=== PATIENT | male | born 1960 | race Hispanic/Latino ===

== ENCOUNTER 2020-11-28 19:42 | Inpatient (IN) | payer OTHER ==
[~2020-11-28] VITALS: Ht 167.6 cm; Wt 107.6 kg
[2020-11-28 19:44] VITALS: BP 172/94
[2020-11-28] MEDS ORDERED: ASPIRIN 325MG TAB PO ONE (20:00)
[2020-11-28] MEDS ORDERED: NITROGLYCERIN 0.4 MG SL TAB SL PRN (20:00)
[2020-11-28] MEDS ORDERED: NITROGLYCERIN 1GM OINT 1 INCH/1GM TD ONE (20:00)
[2020-11-28 20:56] VITALS: BP 149/125
[2020-11-28] MEDS ORDERED: ENOXAPARIN SODIUM 100 MG/1 ML SQ SCH (21:00)
[2020-11-28 21:12] VITALS: BP 158/92
[2020-11-28 21:29] LABS: BASOPHILS % (AUTO) 0.6 % (0.0-5.0); EOSINOPHILS % (AUTO) 2.9 % (0.0-8.0); HEMATOCRIT 42.7 % (42-54); LYMPHOCYTES % (AUTO) 28.5 % (21.0-51.0); MEAN CORPUSCULAR HEMOGLOBIN 28.7 pg (27.0-33.0); MEAN CORPUSCULAR HGB CONC 34.2 g/dL (32.0-36.0); MEAN CORPUSCULAR VOLUME 83.9 fL (79-99); MONOCYTES % (AUTO) 7.6 % (3.0-13.0); NEUTROPHILS % (AUTO) 60.2 % (40.0-77.0); PLATELET COUNT (AUTO) 262 K/uL (130-400); RED BLOOD CELL COUNT(AUTO) 5.09 MIL/uL (4.50-6.20); WHITE BLOOD COUNT (AUTO) 8.4 K/uL (4.8-10.8)
[2020-11-28 21:39] LABS: PROTHROMBIN TIME 10.9 SEC (9.6-11.6)
[2020-11-28 21:41] LABS: PARTIAL THROMBOPLASTIN TIME 25.4 SEC (26.3-35.5)
[2020-11-28 21:43] LABS: CREATININE 1.2 mg/dL (0.5-1.5); POTASSIUM 3.9 mmol/L (3.5-5.1)
[2020-11-28 21:47] LABS: ALBUMIN 3.8 g/dL (3.5-5.0); BILIRUBIN,TOTAL 0.2 mg/dL (0.2-1.0); TOTAL PROTEIN, SERUM 7.7 g/dL (6.0-8.3)
[2020-11-28 21:54] LABS: B-TYPE NATRIURETIC PEPTIDE 14 pg/mL (0-100)
[2020-11-28 22:54] VITALS: BP 123/71
[2020-11-28] MEDS ORDERED: MORPHINE 4 MG SYG IV PRN (23:00)
[2020-11-28] MEDS ORDERED: ONDANSETRON 4MG INJ IV PRN (23:00)
[2020-11-28] MEDS: NITROGLYCERIN 1GM OINT 1 INCH/1GM TD SCH (23:30)
[2020-11-28 23:32] LABS: CHOLESTEROL 224 mg/dL (<200); HDL CHOLESTEROL 33 mg/dL (29-71); LDL DIRECT 103 mg/dL (0-99); TRIGLYCERIDES 502 mg/dL (30-200)
[2020-11-29] VITALS (8 sets, daily range): BP systolic 98–135; BP diastolic 17–81
[2020-11-29 04:03] LABS: CREATININE 0.9 mg/dL (0.5-1.5); MAGNESIUM 1.9 mg/dL (1.80-2.40); PHOSPHORUS 3.7 mg/dL (2.5-4.9); POTASSIUM 3.9 mmol/L (3.5-5.1); THYROID STIMULATING HORMONE 3.93 uIU/mL (0.36-3.74)
[2020-11-29 04:09] LABS: TROPONIN I 5.85 ng/mL (0.00-0.06)
[2020-11-29] MEDS ORDERED: HEPARIN 25,000 UNITS/250ML D5W 250 ML IV ONE (04:25)
[2020-11-29] MEDS ORDERED: HEPARIN 25,000 UNITS/250ML D5W 250 ML IV SCH ×2 (04:30→08:00)
[2020-11-29] MEDS ORDERED: HEPARIN 5,000 UNIT VIAL SQ PRN (04:30)
[2020-11-29 04:31] LABS: BASOPHILS % (AUTO) 0.7 % (0.0-5.0); HEMATOCRIT 39.9 % (42-54); LYMPHOCYTES % (AUTO) 31.1 % (21.0-51.0); MEAN CORPUSCULAR HEMOGLOBIN 29.2 pg (27.0-33.0); MEAN CORPUSCULAR HGB CONC 35.1 g/dL (32.0-36.0); MEAN CORPUSCULAR VOLUME 83.1 fL (79-99); MONOCYTES % (AUTO) 6.3 % (3.0-13.0); NEUTROPHILS % (AUTO) 58.5 % (40.0-77.0); PLATELET COUNT (AUTO) 243 K/uL (130-400); RED CELL DISTRIBUTION WIDTH 12.1 % (11.0-15.5); WHITE BLOOD COUNT (AUTO) 8.5 K/uL (4.8-10.8)
[2020-11-29 04:41] LABS: HEMOGLOBIN A1C 7.4 % (4.0-6.0)
[2020-11-29] MEDS ORDERED: HEPARIN 5,000 UNIT VIAL ONE (05:10)
[2020-11-29] MEDS ORDERED: CLOPIDOGREL 300MG TAB ONE (05:36)
[2020-11-29] MEDS ORDERED: NITROGLYCERIN 1GM OINT 1 INCH/1GM TD ONE (06:18)
[2020-11-29] MEDS: LEVOTHYROXINE 100 MCG TABLET PO SCH (06:30)
[2020-11-29] MEDS ORDERED: 0.9% NACL 500ML IV.SOLN 500 ML IV SCH (06:30)
[2020-11-29] MEDS ORDERED: HEPARIN 10,000 UNIT/10ML (1,000 UNIT/ML) VIAL ONE (07:03)
[2020-11-29] MEDS ORDERED: IOHEXOL-350 50ML VIAL IV ONE (07:03)
[2020-11-29] MEDS ORDERED: IOHEXOL 350 MG/ML 100ML INFUS..BTL IV ONE (07:03)
[2020-11-29] MEDS ORDERED: FENTANYL CITRATE PF 50 MCG/1 ML 2ML VIAL ONE (07:03)
[2020-11-29] MEDS ORDERED: MIDAZOLAM HCL 1 MG/ML 2ML VIAL ONE (07:03)
[2020-11-29] MEDS ORDERED: LIDOCAINE HCL 400MG/20ML VIAL ONE (07:04)
[2020-11-29] MEDS ORDERED: CLOPIDOGREL 300MG TAB PO SCH (07:23)
[2020-11-29] MEDS: GEMFIBROZIL 600 MG TABLET PO SCH ×2 (07:30→17:48)
[2020-11-29] MEDS: INSULIN HUMULIN R 100 UNIT/ML 3ML SQ SCH ×4 (07:30→21:05)
[2020-11-29] MEDS: NITROGLYCERIN 1GM OINT 1 INCH/1GM TD SCH ×2 (07:30→17:49)
[2020-11-29] MEDS ORDERED: LEVO100T4 PO (08:13)
[2020-11-29] MEDS: METOPROLOL TARTRATE 25 MG TAB PO SCH ×2 (09:00→21:03)
[2020-11-29] MEDS ORDERED: LISINOPRIL 10 MG TABLET PO SCH (09:00)
[2020-11-29] MEDS ORDERED: ENOXAPARIN SODIUM 40 MG/0.4 ML SYRINGE SQ SCH (09:00)
[2020-11-29] MEDS ORDERED: CARVEDILOL 3.125 MG TABLET PO SCH (09:00)
[2020-11-29 09:42] LABS: TROPONIN I 5.92 ng/mL (0.00-0.06)
[2020-11-29] MEDS: ASPIRIN 81MG CHEW TAB PO SCH (10:04)
[2020-11-29] MEDS: FAMOTIDINE 20MG TAB PO SCH (10:04)
[2020-11-29 17:26] LABS: ABG BASE EXCESS -0.4 mmol/L (-2.0-3.0); ABG HCO3 22.3 mmol/L (21.0-28.0); ABG OXYGEN SATURATION 97.3 % (95.0-99.0); ABG PCO2 32 mmHg (35-48)
[2020-11-29] MEDS ORDERED: MORPHINE 2 MG SYG IV PRN (17:30)
[2020-11-29] MEDS: ACETAMINOPHEN 325 MG TAB PO PRN (17:48)
[2020-11-29] MEDS ORDERED: HYDROCODONE/ACETAMINOPHEN 5/325 MG TAB PO PRN (19:00)
[2020-11-29] MEDS ORDERED: ATORVASTATIN 40 MG TABLET PO SCH ×2 (21:00)
[2020-11-29] MEDS: ATORVASTATIN 40 MG TABLET PO SCH (21:03)
[2020-11-30] VITALS (36 sets, daily range): BP systolic 75–154; BP diastolic 41–77
[2020-11-30] MEDS: NITROGLYCERIN 1GM OINT 1 INCH/1GM TD SCH (00:39)
[2020-11-30 03:34] LABS: BASOPHILS % (AUTO) 0.5 % (0.0-5.0); EOSINOPHILS % (AUTO) 2.3 % (0.0-8.0); HEMATOCRIT 39.1 % (42-54); LYMPHOCYTES % (AUTO) 39.1 % (21.0-51.0); MEAN CORPUSCULAR HEMOGLOBIN 29.1 pg (27.0-33.0); MEAN CORPUSCULAR HGB CONC 34.5 g/dL (32.0-36.0); MEAN CORPUSCULAR VOLUME 84.3 fL (79-99); MONOCYTES % (AUTO) 7.4 % (3.0-13.0); NEUTROPHILS % (AUTO) 50.5 % (40.0-77.0); PLATELET COUNT (AUTO) 261 K/uL (130-400); RED BLOOD CELL COUNT(AUTO) 4.64 MIL/uL (4.50-6.20); RED CELL DISTRIBUTION WIDTH 12.3 % (11.0-15.5); WHITE BLOOD COUNT (AUTO) 8.2 K/uL (4.8-10.8)
[2020-11-30 03:50] LABS: INR 0.98 (0.85-1.15); PROTHROMBIN TIME 10.7 SEC (9.6-11.6)
[2020-11-30 03:51] LABS: PARTIAL THROMBOPLASTIN TIME 31.6 SEC (26.3-35.5)
[2020-11-30 03:54] LABS: B-TYPE NATRIURETIC PEPTIDE 12 pg/mL (0-100); POTASSIUM 3.9 mmol/L (3.5-5.1)
[2020-11-30 03:55] LABS: ALBUMIN 3.6 g/dL (3.5-5.0); BILIRUBIN,TOTAL 0.5 mg/dL (0.2-1.0); CREATININE 0.9 mg/dL (0.5-1.5); MAGNESIUM 1.8 mg/dL (1.80-2.40); TOTAL PROTEIN, SERUM 7.3 g/dL (6.0-8.3)
[2020-11-30] MEDS ORDERED: MAGNESIUM 2GM PREMIX 50ML 50 ML IV ONE (06:25)
[2020-11-30] MEDS: LEVOTHYROXINE 100 MCG TABLET PO SCH (06:30)
[2020-11-30] MEDS ORDERED: MAGNESIUM 2GM PREMIX 50ML 50 ML IV PRN ×2 (06:30→09:00)
[2020-11-30] MEDS: INSULIN HUMULIN R 100 UNIT/ML 3ML SQ SCH (06:33)
[2020-11-30] MEDS ORDERED: CEFAZOLIN SODIUM 1 GM VIAL ONE ×2 (06:37→08:39)
[2020-11-30] MEDS ORDERED: PAPAVERINE HCL 30 MG/ML 2ML VIAL ONE (06:37)
[2020-11-30] MEDS ORDERED: NITROGLYCERIN 50MG/D5W 250ML 1 BOT ONE (06:59)
[2020-11-30] MEDS ORDERED: EPINEPHRINE PF 1MG AMP 10 MG in 0.9% NACL 250ML 240 ML IV PRN (06:59)
[2020-11-30] MEDS ORDERED: NOREPINEPHRINE BITARTRATE 8 MG in 0.9% NACL 250ML 250 ML IV PRN (07:00)
[2020-11-30] MEDS ORDERED: AMINOCAPROIC ACID 5,000MG VIAL 15,000 MG in 0.9% NACL 500ML IV.SOLN 420 ML IV PRN (07:00)
[2020-11-30] MEDS ORDERED: CEFAZOLIN SODIUM 1 GM VIAL IVP PRN (07:30)
[2020-11-30] MEDS ORDERED: AMINOCAPROIC ACID 5,000MG VIAL ONE (08:04)
[2020-11-30] MEDS ORDERED: SODIUM BICARB 50MEQ 50ML VIAL 150 ML ONE (08:04)
[2020-11-30] MEDS ORDERED: NOREPINEPHRINE BITARTRATE 1 MG/1 ML ML IV ONE (08:04)
[2020-11-30] MEDS ORDERED: LIDOCAINE PF 100MG/5ML (2%) SYRINGE 5ML ONE (08:04)
[2020-11-30] MEDS ORDERED: HEPARIN 10,000 UNIT/10ML (1,000 UNIT/ML) VIAL ONE ×2 (08:04→08:31)
[2020-11-30] MEDS ORDERED: ESMOLOL HCL 10 MG/ML 10 ML VIAL ONE (08:04)
[2020-11-30] MEDS ORDERED: PROTAMINE SULFATE 10 MG/ML 25ML VIAL IV ONE (08:04)
[2020-11-30] MEDS ORDERED: EPINEPHRINE PF 1MG AMP ONE (08:04)
[2020-11-30] MEDS ORDERED: KETAMINE 50MG/ML SYRINGE 50 MG/ML DISP.SYRIN IV ONE ×2 (08:05→10:56)
[2020-11-30] MEDS ORDERED: PROPOFOL 10 MG/ML 20ML VIAL IV ONE (08:05)
[2020-11-30] MEDS ORDERED: ROCURONIUM 10MG/1ML SYR 10 MG/ML ML ONE (08:05)
[2020-11-30] MEDS ORDERED: MIDAZOLAM HCL 1 MG/ML 2ML VIAL ONE (08:05)
[2020-11-30] MEDS ORDERED: FENTANYL CITRATE PF 50 MCG/1 ML 20ML VIAL IJ ONE (08:05)
[2020-11-30 08:45] LABS: ABG BASE EXCESS -2.5 mmol/L (-2.0-3.0); ABG HCO3 22.1 mmol/L (21.0-28.0); ABG OXYGEN SATURATION 99.1 % (95.0-99.0); ABG PCO2 38 mmHg (35-48)
[2020-11-30] MEDS ORDERED: ACETAMINOPHEN 650 MG SUPPOSITORY RC PRN (09:00)
[2020-11-30] MEDS ORDERED: ONDANSETRON 4MG INJ IV PRN (09:00)
[2020-11-30] MEDS ORDERED: AMINOCAPROIC ACID 5,000MG VIAL 15,000 MG in 0.9% NACL 250ML 250 ML IV SCH (09:00)
[2020-11-30] MEDS ORDERED: 0.9% NACL 500ML IV.SOLN 500 ML IV SCH (09:00)
[2020-11-30] MEDS ORDERED: NOREPINEPHRINE 4MG/NS 250ML 250 ML IV PRN (09:00)
[2020-11-30] MEDS ORDERED: POTASSIUM PHOS 15 mMOL+NS250ML 250 ML IV PRN (09:00)
[2020-11-30] MEDS ORDERED: PROPOFOL 1000 MG/100 ML 100 ML IV PRN (09:00)
[2020-11-30] MEDS ORDERED: 0.9%NACL 10ML VIAL IVP PRN (09:00)
[2020-11-30] MEDS: ASPIRIN 81MG CHEW TAB PO SCH (09:00)
[2020-11-30] MEDS ORDERED: NITROGLYCERIN 50MG/D5W 250ML 250 BOT IV SCH (09:00)
[2020-11-30] MEDS ORDERED: MORPHINE 2 MG SYG IV PRN (09:00)
[2020-11-30] MEDS ORDERED: EPINEPHRINE PF 1MG AMP 10 MG in DEXTROSE 5%-WATER 250 ML IV PRN (09:00)
[2020-11-30] MEDS: FAMOTIDINE 20MG VIAL IV SCH ×2 (09:00→20:59)
[2020-11-30] MEDS: FAMOTIDINE 20MG TAB PO SCH (09:00)
[2020-11-30] MEDS ORDERED: DEXTROSE 50%-WATER 50 ML DISP.SYRIN IV PRN (09:00)
[2020-11-30] MEDS ORDERED: ALBUMIN (HUMAN) 5% 250 ML IV PRN (09:00)
[2020-11-30] MEDS ORDERED: GLUCAGON 1MG KIT 1 MG ML IM PRN (09:00)
[2020-11-30] MEDS ORDERED: 0.9%NACL 1000ML 1,000 ML IV SCH (09:00)
[2020-11-30] MEDS ORDERED: MORPHINE 4 MG SYG IV PRN (09:00)
[2020-11-30 10:45] LABS: ABG BASE EXCESS -6.1 mmol/L (-2.0-3.0); ABG HCO3 19.2 mmol/L (21.0-28.0); ABG OXYGEN SATURATION 98.5 % (95.0-99.0); ABG PCO2 38 mmHg (35-48)
[2020-11-30] MEDS ORDERED: EPHEDRINE SULFATE 50 MG/ML AMPULE ONE (11:05)
[2020-11-30 11:30] LABS: HEMATOCRIT 30.7 % (42-54); MEAN CORPUSCULAR HEMOGLOBIN 29.2 pg (27.0-33.0); MEAN CORPUSCULAR HGB CONC 34.2 g/dL (32.0-36.0); MEAN CORPUSCULAR VOLUME 85.3 fL (79-99); RED BLOOD CELL COUNT(AUTO) 3.6 MIL/uL (4.50-6.20); WHITE BLOOD COUNT (AUTO) 20.7 K/uL (4.8-10.8)
[2020-11-30 11:48] LABS: MAGNESIUM 1.5 mg/dL (1.80-2.40); PHOSPHORUS 4.3 mg/dL (2.5-4.9); POTASSIUM 3.4 mmol/L (3.5-5.1)
[2020-11-30 12:00] LABS: ABG BASE EXCESS -4.2 mmol/L (-2.0-3.0); ABG HCO3 21.9 mmol/L (21.0-28.0); ABG OXYGEN SATURATION 97.3 % (95.0-99.0); ABG PCO2 44 mmHg (35-48)
[2020-11-30] MEDS: SODIUM BICARB 50MEQ 50ML VIAL IV PRN ×3 (12:10→14:45)
[2020-11-30 12:20] LABS: INR 1.1 (0.85-1.15); PROTHROMBIN TIME 11.9 SEC (9.6-11.6)
[2020-11-30 12:21] LABS: PARTIAL THROMBOPLASTIN TIME 25.6 SEC (26.3-35.5)
[2020-11-30] MEDS: POTASSIUM CHLORIDE 20MEQ/100ML 100 ML IV PRN ×3 (12:25→22:39)
[2020-11-30 12:47] LABS: ABG BASE EXCESS -3.1 mmol/L (-2.0-3.0); ABG HCO3 22.3 mmol/L (21.0-28.0); ABG OXYGEN SATURATION 97.9 % (95.0-99.0); ABG PCO2 41 mmHg (35-48)
[2020-11-30] MEDS: TRAMADOL HCL 50 MG TABLET PO PRN ×3 (13:15→22:52)
[2020-11-30] MEDS: CEFAZOLIN SODIUM 1 GM VIAL IV SCH ×2 (13:43→21:08)
[2020-11-30 13:45] LABS: ABG BASE EXCESS -0.4 mmol/L (-2.0-3.0); ABG HCO3 24.7 mmol/L (21.0-28.0); ABG OXYGEN SATURATION 97.1 % (95.0-99.0); ABG PCO2 43 mmHg (35-48)
[2020-11-30] MEDS: CALCIUM GLUC 1GM VIAL 1 GM in 0.9%NACL 50ML 50 ML IV PRN ×3 (14:00→22:37)
[2020-11-30 14:40] LABS: ABG BASE EXCESS -2.1 mmol/L (-2.0-3.0); ABG HCO3 22.9 mmol/L (21.0-28.0); ABG OXYGEN SATURATION 97.2 % (95.0-99.0); ABG PCO2 40 mmHg (35-48)
[2020-11-30] MEDS: ACETAMINOPHEN 325 MG TAB PO PRN (15:23)
[2020-11-30 16:17] LABS: ABG BASE EXCESS -0.2 mmol/L (-2.0-3.0); ABG HCO3 24.6 mmol/L (21.0-28.0); ABG OXYGEN SATURATION 96.3 % (95.0-99.0); ABG PCO2 41 mmHg (35-48)
[2020-11-30] MEDS ORDERED: KETOROLAC 15MG/ML VIAL (15MG/ML) IV PRN (16:30)
[2020-11-30] MEDS: INSULIN REGULAR, HUMAN 3ML 100 UNIT in 0.9%NACL 100ML 99 ML IV SCH ×2 (19:49)
[2020-11-30] MEDS: ATORVASTATIN 40 MG TABLET PO SCH (20:59)
[2020-11-30 22:21] LABS: POTASSIUM 3.9 mmol/L (3.5-5.1)
[2020-11-30] MEDS: MAGNESIUM 2GM PREMIX 50ML 50 ML IV SCH (22:37)
[2020-11-30] MEDS ORDERED: CALCIUM GLUC 1GM VIAL IV ONE (22:47)
[2020-12-01] VITALS (38 sets, daily range): BP systolic 77–182; BP diastolic 44–89
[2020-12-01] MEDS: MAGNESIUM 2GM PREMIX 50ML 50 ML IV SCH (00:36)
[2020-12-01] MEDS ORDERED: NOREPINEPHRINE 8MG/NS 250 ML 250 ML IV ONE (02:34)
[2020-12-01] MEDS ORDERED: KETOROLAC 15MG/ML VIAL (15MG/ML) ONE (02:51)
[2020-12-01] MEDS ORDERED: KETOROLAC 15MG/ML VIAL (15MG/ML) IV ONE (03:00)
[2020-12-01] MEDS: TRAMADOL HCL 50 MG TABLET PO PRN ×4 (03:17→23:05)
[2020-12-01 04:04] LABS: ABG BASE EXCESS 1.1 mmol/L (-2.0-3.0); ABG OXYGEN SATURATION 93.9 % (95.0-99.0); ABG PCO2 38 mmHg (35-48)
[2020-12-01 04:17] LABS: HEMATOCRIT 31.3 % (42-54); MEAN CORPUSCULAR HGB CONC 34.5 g/dL (32.0-36.0); MEAN CORPUSCULAR VOLUME 84.1 fL (79-99); RED BLOOD CELL COUNT(AUTO) 3.72 MIL/uL (4.50-6.20); RED CELL DISTRIBUTION WIDTH 12.3 % (11.0-15.5); WHITE BLOOD COUNT (AUTO) 15.9 K/uL (4.8-10.8)
[2020-12-01 04:28] LABS: INR 1.05 (0.85-1.15); PROTHROMBIN TIME 11.4 SEC (9.6-11.6)
[2020-12-01 04:29] LABS: PARTIAL THROMBOPLASTIN TIME 32.2 SEC (26.3-35.5)
[2020-12-01 04:38] LABS: CREATININE 0.8 mg/dL (0.5-1.5); MAGNESIUM 2.1 mg/dL (1.80-2.40); PHOSPHORUS 4.1 mg/dL (2.5-4.9); POTASSIUM 3.7 mmol/L (3.5-5.1)
[2020-12-01] MEDS: POTASSIUM CHLORIDE 20MEQ/100ML 100 ML IV PRN ×5 (05:04→16:10)
[2020-12-01] MEDS: CEFAZOLIN SODIUM 1 GM VIAL IV SCH (06:10)
[2020-12-01] MEDS: LEVOTHYROXINE 100 MCG TABLET PO SCH (06:10)
[2020-12-01] MEDS: FAMOTIDINE 20MG TAB PO SCH (08:21)
[2020-12-01] MEDS: FUROSEMIDE 20MG VIAL IV SCH ×2 (08:21→20:40)
[2020-12-01] MEDS: ASPIRIN 81MG CHEW TAB PO SCH (08:21)
[2020-12-01 09:51] LABS: CREATININE 0.9 mg/dL (0.5-1.5); MAGNESIUM 1.9 mg/dL (1.80-2.40); POTASSIUM 3.8 mmol/L (3.5-5.1)
[2020-12-01 14:56] LABS: CREATININE 0.9 mg/dL (0.5-1.5); MAGNESIUM 2.1 mg/dL (1.80-2.40); POTASSIUM 3.6 mmol/L (3.5-5.1)
[2020-12-01] MEDS: ATORVASTATIN 40 MG TABLET PO SCH (20:40)
[2020-12-01] MEDS: INSULIN REGULAR, HUMAN 3ML 100 UNIT in 0.9%NACL 100ML 99 ML IV SCH ×2 (23:48)
[2020-12-02] VITALS (65 sets, daily range): BP systolic 92–162; BP diastolic 35–79
[2020-12-02 04:40] LABS: HEMATOCRIT 29.3 % (42-54); MEAN CORPUSCULAR HEMOGLOBIN 28.3 pg (27.0-33.0); MEAN CORPUSCULAR HGB CONC 32.4 g/dL (32.0-36.0); MEAN CORPUSCULAR VOLUME 87.2 fL (79-99); RED BLOOD CELL COUNT(AUTO) 3.36 MIL/uL (4.50-6.20); RED CELL DISTRIBUTION WIDTH 12.5 % (11.0-15.5); WHITE BLOOD COUNT (AUTO) 15.3 K/uL (4.8-10.8)
[2020-12-02 04:49] LABS: CREATININE 0.8 mg/dL (0.5-1.5); POTASSIUM 4.1 mmol/L (3.5-5.1)
[2020-12-02] MEDS: LEVOTHYROXINE 100 MCG TABLET PO SCH (05:35)
[2020-12-02] MEDS: TRAMADOL HCL 50 MG TABLET PO PRN ×3 (05:35→21:18)
[2020-12-02] MEDS: METOPROLOL TARTRATE 25 MG TAB PO SCH ×2 (09:00→20:11)
[2020-12-02] MEDS: ACETAMINOPHEN 325 MG TAB PO PRN (09:20)
[2020-12-02] MEDS: FAMOTIDINE 20MG TAB PO SCH (09:20)
[2020-12-02] MEDS: ASPIRIN 81MG CHEW TAB PO SCH (09:20)
[2020-12-02] MEDS ORDERED: AMIODARONE 900MG VIAL 360 MG in DEXTROSE 5%-WATER 200 ML IV SCH (10:00)
[2020-12-02] MEDS ORDERED: AMIODARONE 900MG VIAL 150 MG in DEXTROSE 5%-WATER 100 ML IV SCH (10:00)
[2020-12-02] MEDS ORDERED: AMIODARONE 900MG VIAL 450 MG in DEXTROSE 5%-WATER 250 ML IV SCH (10:00)
[2020-12-02] MEDS ORDERED: AMIODARONE 900MG VIAL 900 MG in DEXTROSE 5%-WATER 500 ML IV SCH (10:00)
[2020-12-02] MEDS: FUROSEMIDE 20 MG TABLET PO SCH ×2 (10:34→16:57)
[2020-12-02] MEDS: ATORVASTATIN 40 MG TABLET PO SCH (21:17)
[2020-12-03] VITALS (18 sets, daily range): BP systolic 89–115; BP diastolic 53–82
[2020-12-03] MEDS: ACETAMINOPHEN 325 MG TAB PO PRN ×2 (00:04→20:31)
[2020-12-03 03:44] LABS: HEMATOCRIT 27.5 % (42-54); MEAN CORPUSCULAR HEMOGLOBIN 29.1 pg (27.0-33.0); MEAN CORPUSCULAR HGB CONC 34.2 g/dL (32.0-36.0); MEAN CORPUSCULAR VOLUME 85.1 fL (79-99); RED BLOOD CELL COUNT(AUTO) 3.23 MIL/uL (4.50-6.20); WHITE BLOOD COUNT (AUTO) 11.9 K/uL (4.8-10.8)
[2020-12-03 03:55] LABS: CREATININE 0.9 mg/dL (0.5-1.5); POTASSIUM 4.1 mmol/L (3.5-5.1)
[2020-12-03] MEDS: LEVOTHYROXINE 100 MCG TABLET PO SCH (05:14)
[2020-12-03] MEDS: TRAMADOL HCL 50 MG TABLET PO PRN (05:14)
[2020-12-03] MEDS: ASPIRIN 81MG CHEW TAB PO SCH (08:49)
[2020-12-03] MEDS: FUROSEMIDE 20 MG TABLET PO SCH ×2 (08:50→16:08)
[2020-12-03] MEDS: FAMOTIDINE 20MG TAB PO SCH (08:51)
[2020-12-03] MEDS: ENOXAPARIN SODIUM 30 MG/0.3 ML SQ SCH (08:55)
[2020-12-03] MEDS: METOPROLOL TARTRATE 25 MG TAB PO SCH ×2 (10:00→21:00)
[2020-12-03] MEDS: ATORVASTATIN 40 MG TABLET PO SCH (20:30)
[2020-12-03] MEDS: DIPHENHYDRAMINE HCL 25 MG CAPSULE PO PRN (20:31)
[2020-12-04] MEDS: ACETAMINOPHEN 325 MG TAB PO PRN ×3 (00:33→19:59)
[2020-12-04 03:28] LABS: HEMATOCRIT 27.8 % (42-54); MEAN CORPUSCULAR HEMOGLOBIN 29.2 pg (27.0-33.0); MEAN CORPUSCULAR HGB CONC 34.5 g/dL (32.0-36.0); MEAN CORPUSCULAR VOLUME 84.5 fL (79-99); RED BLOOD CELL COUNT(AUTO) 3.29 MIL/uL (4.50-6.20); RED CELL DISTRIBUTION WIDTH 11.9 % (11.0-15.5); WHITE BLOOD COUNT (AUTO) 11.1 K/uL (4.8-10.8)
[2020-12-04 03:34] LABS: CREATININE 0.9 mg/dL (0.5-1.5); POTASSIUM 3.5 mmol/L (3.5-5.1)
[2020-12-04 04:30] VITALS: BP 117/55
[2020-12-04] MEDS: LEVOTHYROXINE 100 MCG TABLET PO SCH (05:34)
[2020-12-04 07:30] VITALS: BP 101/57
[2020-12-04] MEDS: METOPROLOL TARTRATE 25 MG TAB PO SCH (09:00)
[2020-12-04] MEDS: ASPIRIN 81MG CHEW TAB PO SCH (10:10)
[2020-12-04] MEDS: FAMOTIDINE 20MG TAB PO SCH (10:10)
[2020-12-04] MEDS: FUROSEMIDE 20 MG TABLET PO SCH ×2 (10:10→18:03)
[2020-12-04] MEDS: AMIODARONE 200 MG TABLET PO SCH (10:10)
[2020-12-04] MEDS: ENOXAPARIN SODIUM 30 MG/0.3 ML SQ SCH (10:11)
[2020-12-04 11:30] VITALS: BP 102/54
[2020-12-04] MEDS ORDERED: LACTULOSE 20 GM/30 ML UDCUP PO PRN (15:30)
[2020-12-04 16:30] VITALS: BP 108/69
[2020-12-04 19:00] VITALS: BP 138/83
[2020-12-04] MEDS: ATORVASTATIN 40 MG TABLET PO SCH (19:57)
[2020-12-04] MEDS: DIPHENHYDRAMINE HCL 25 MG CAPSULE PO PRN (19:59)
[2020-12-04] MEDS: INSULIN HUMULIN R 100 UNIT/ML 3ML SQ SCH (22:18)
[2020-12-04] MEDS ORDERED: INSULIN HUMULIN R 100 UNIT/ML 3ML ONE (22:21)
[2020-12-04] MEDS ORDERED: GLUCAGON 1MG KIT 1 MG ML IM PRN (22:30)
[2020-12-04] MEDS ORDERED: DEXTROSE 50%-WATER 50 ML DISP.SYRIN IV PRN (22:30)
[2020-12-04 23:00] VITALS: BP 116/84
[2020-12-05] MEDS: ACETAMINOPHEN 325 MG TAB PO PRN ×4 (00:31→19:58)
[2020-12-05] MEDS: TRAMADOL HCL 50 MG TABLET PO PRN (00:32)
[2020-12-05] MEDS: DIPHENHYDRAMINE HCL 25 MG CAPSULE PO PRN (02:14)
[2020-12-05 03:00] VITALS: BP 113/93
[2020-12-05 03:42] LABS: CREATININE 0.9 mg/dL (0.5-1.5); POTASSIUM 3.4 mmol/L (3.5-5.1)
[2020-12-05 03:45] LABS: BASOPHILS % (AUTO) 0.6 % (0.0-5.0); EOSINOPHILS % (AUTO) 3.4 % (0.0-8.0); HEMATOCRIT 27.5 % (42-54); LYMPHOCYTES % (AUTO) 23.9 % (21.0-51.0); MEAN CORPUSCULAR HEMOGLOBIN 28.1 pg (27.0-33.0); MEAN CORPUSCULAR HGB CONC 33.5 g/dL (32.0-36.0); MEAN CORPUSCULAR VOLUME 84.1 fL (79-99); NEUTROPHILS % (AUTO) 61.4 % (40.0-77.0); PLATELET COUNT (AUTO) 377 K/uL (130-400); RED BLOOD CELL COUNT(AUTO) 3.27 MIL/uL (4.50-6.20); WHITE BLOOD COUNT (AUTO) 8.5 K/uL (4.8-10.8)
[2020-12-05] MEDS ORDERED: PHARMACY COMMUNICATION MISC SCH (07:00)
[2020-12-05] MEDS: LEVOTHYROXINE 100 MCG TABLET PO SCH (07:12)
[2020-12-05] MEDS: INSULIN HUMULIN R 100 UNIT/ML 3ML SQ SCH ×2 (07:13→16:30)
[2020-12-05 08:00] VITALS: BP 117/66
[2020-12-05] MEDS: ASPIRIN 81MG CHEW TAB PO SCH (10:35)
[2020-12-05] MEDS: FUROSEMIDE 20 MG TABLET PO SCH ×2 (10:36→18:43)
[2020-12-05] MEDS: FAMOTIDINE 20MG TAB PO SCH (10:36)
[2020-12-05] MEDS: AMIODARONE 200 MG TABLET PO SCH (10:36)
[2020-12-05] MEDS: ENOXAPARIN SODIUM 30 MG/0.3 ML SQ SCH (10:47)
[2020-12-05 12:00] VITALS: BP 124/68
[2020-12-05 16:45] VITALS: BP 105/60
[2020-12-05] MEDS ORDERED: AMIO200T44 PO (18:05)
[2020-12-05] MEDS ORDERED: ATOR40TA69 PO (18:05)
[2020-12-05] MEDS ORDERED: ASPI-1005 PO (18:05)
[2020-12-05] MEDS ORDERED: FURO20TA6 PO (18:05)
[2020-12-05] MEDS ORDERED: METO25TA6 PO (18:26)
[2020-12-05] MEDS: ATORVASTATIN 40 MG TABLET PO SCH (18:43)
== END 2020-12-05 20:25 | disposition home or self-care (01) | DRG 234 ==
LOC: EDH 19:42 → OBSVTOIN 19:43 → EDHIP 19:43 → 4DH 11-29 04:18 → 2CH 11-30 07:00 → 2DH 12-03 12:13
PROVIDERS: ADMIT Family Medicine; ATTEND Family Medicine
PROC: 4A023N7 Measurement of Cardiac Sampling and Pressure, Left Heart, Percutaneous Approach (ICD-10-PCS; 2020-11-28)
PROC: B2111ZZ Fluoroscopy of Multiple Coronary Arteries using Low Osmolar Contrast (ICD-10-PCS; 2020-11-28)
PROC: B2151ZZ Fluoroscopy of Left Heart using Low Osmolar Contrast (ICD-10-PCS; 2020-11-28)
PROC: 06BQ4ZZ Excision of Left Saphenous Vein, Percutaneous Endoscopic Approach (ICD-10-PCS; 2020-11-30)
PROC: 02100Z9 Bypass Coronary Artery, One Artery from Left Internal Mammary, Open Approach (ICD-10-PCS; principal; 2020-11-30 08:00)
PROC: 021109W Bypass Coronary Artery, Two Arteries from Aorta with Autologous Venous Tissue, Open Approach (ICD-10-PCS; 2020-11-30 08:00)
DX: I21.4 Non-ST elevation (NSTEMI) myocardial infarction (principal); I25.110 Atherosclerotic heart disease of native coronary artery with unstable angina pectoris; E78.5 Hyperlipidemia, unspecified; E78.1 Pure hyperglyceridemia; E11.9 Type 2 diabetes mellitus without complications; E78.00 Pure hypercholesterolemia, unspecified; E03.9 Hypothyroidism, unspecified; I10 Essential (primary) hypertension; I48.0 Paroxysmal atrial fibrillation; E87.70 Fluid overload, unspecified; Z20.822 Contact with and (suspected) exposure to COVID-19; Z79.82 Long term (current) use of aspirin; Z87.891 Personal history of nicotine dependence; Z79.899 Other long term (current) drug therapy
CPT/HCPCS: 36415; 36600; 71045; 80048; 80053; 80061; 82330; 82435; 82550; 82803; 82947; 82948; 83036; 83605; 83690; 83735; 83874; 83880; 84100; 84132; 84295; 84439; 84443; 84484; 85018; 85025; 85027; 85347; 85610; 85730; 86850; 86900; 86901; 86923; 87635; 93005; 93458; 93880; 94002; 94010; 94150; 97039; A7048; C1769; C1894; G0378; J0171; J0282; J0610; J0690; J1644; J1650; J1815; J1885; J1940; J2001; J2250; J2270; J2440; J2704; J2720; J3010; J3475; J3480; J3490; J7030; J7040; J7060; P9045; Q0163; Q9967

== ENCOUNTER → 2022-02-09 | Outpatient (CLI) | payer SELFPAY ==
[~2022-02-09] MED LIST: AMIO200T44 PO; ASPI-1005 PO; ATOR40TA69 PO; FURO20TA6 PO; LEVO100T4 PO; METO25TA6 PO
[2022-02-09 13:11] LABS: CREATININE 0.9 mg/dL (0.5-1.5); POTASSIUM 4.3 mmol/L (3.5-5.1)
== END | disposition home or self-care (01) ==
LOC: LAB 10:03
PROVIDERS: ATTEND Internal Medicine Cardiovascular Disease
DX: I25.10 Atherosclerotic heart disease of native coronary artery without angina pectoris (principal)
CPT/HCPCS: 36415; 80048; 80061; 83036

== ENCOUNTER → 2023-11-02 | Outpatient (CLI) | payer SELFPAY ==
[~2023-11-02] MED LIST changes: +IOHEXOL 350 MG/ML 100ML INFUS..BTL IV ONE
== END | disposition home or self-care (01) ==
LOC: RAH 09:08
PROVIDERS: ATTEND Internal Medicine Cardiovascular Disease
DX: I25.10 Atherosclerotic heart disease of native coronary artery without angina pectoris (principal); M47.815 Spondylosis without myelopathy or radiculopathy, thoracolumbar region
CPT/HCPCS: 75574; Q9967